=== PATIENT | male | born 1990 | race Hispanic/Latino ===

== ENCOUNTER 2022-12-08 21:45 | Inpatient (IN) | payer SELFPAY ==
[2022-12-08] VITALS (29 sets, daily range): BP systolic 79–172; BP diastolic 43–131; PULSE 101–143; RESP 12–37; TEMP 36.6; O2SAT 80–95
--- NOTE | ~2022-12-08 | XR_ITS ---
EXAMINATION: XR chest 2V DATE: 12/11/2022 09:30 INDICATION: Pneumonia. TECHNIQUE: Frontal and lateral views of the chest were obtained. COMPARISON: Chest single view 12/08/2022 FINDINGS: There are mild airspace opacities in the perihilar regions bilaterally. No pleural effusion or pneumothorax. The heart size is normal. IMPRESSION: 1. Mild airspace opacities in the perihilar regions bilaterally with interval improvement, likely mil d pulmonary edema. Reviewed, dictated and finalized at location B. IMPRESSION: 1. Mild airspace opacities in the perihilar regions bilaterally with interval i mprovement, likely mild pulmonary edema.
--- NOTE | ~2022-12-08 | XR_ITS ---
EXAMINATION: XR chest 1V portable Exam Date/Time: 12/08/2022 22:04 CDT HISTORY: overdose Comparison: None. RESULT: Lines, tubes, and devices: None. Lungs and pleura: Diffuse bilateral reticular and airspace opacities, most prominent in the majority of the left lung and the right upper lung but also present to a lesser degree in the right mid and l ower lung. Cardiomediastinal silhouette: Normal. Other: No acute osseous or upper abdominal finding. IMPRESSION: Pulmonary findings likely represent moderate diffuse bilateral pulmonary edema. Infection or inhalati onal injury are not excluded. Reviewed, dictated and finalized at location K. IMPRESSION: Pulmonary findings likely represent moderate diffuse bilateral pulmonary edema. Infection or inhalational injury are not excluded.
--- NOTE | ~2022-12-08 | US_ITS ---
EXAMINATION: US abdomen limited DATE: 12/09/2022 10:29 INDICATION: Abnormal liver function tests. TECHNIQUE: Multiple grayscale and Doppler ultrasound images of the abdomen were obtained. COMPARISON: None FINDINGS: The pancreas is obscured by bowel gas. The liver is normal without focal lesion. No liver s urface nodularity. There is normal flow in main portal vein. The gallbladder is normal in size. No ga llstones or gallbladder wall thickening. There was no sonographic Do sign. The common duct is nor mal and measures 3 mm. IMPRESSION: 1. No etiology for abnormal liver function tests. Reviewed, dictated and finalized at location B.
--- NOTE | 2022-12-08 21:50 | PC.NURSE ---
pt arrived by private car by pts sister. pt OD on fentanyl . pt was placed in room. pt was lethargic almost obtunded. pt has snoring/tach respirations. NRB was immediately applied. IV established. pt placed on monitor. pt was alert with a hard sternal rub. Medications given. labs and ekg were complete. pt vomited x3. pt bit his upper lip and scant amount of bleeding was noted
--- NOTE | 2022-12-08 21:52 | ECG_ITS ---
Measurements Intervals [place] Rate: 149 P: 50 SC: 109 QRS: 62 QRSD: 85 T: 51 QT: 279 QTc: 440 Interpretive Statements SINUS TACHYCARDIA ABNORMAL RHYTHM ECG NO PREVIOUS ECG AVAILABLE FOR COMPARISON Electronically Signed On 12-09-2022 7:46:53 CDT by Lamine Anton M.D.
--- NOTE | 2022-12-08 22:20 | PC.NURSE ---
pt is having periods of apnea
--- NOTE | 2022-12-08 22:21 | PC.NURSE ---
2nd narcan given
[2022-12-08] MEDS: NALOXONE HCL 0.4 MG/ML VIAL (22:32)
[2022-12-08] MEDS: ONDANSETRON INJ 4 MG/2 ML VIAL IV PUSH (22:33)
[2022-12-08] MEDS: NALOXONE HCL INJ 2 MG/2 ML AMP IV PUSH (22:33)
[2022-12-08 22:35] LABS: Basophils Percent Auto 0.6 % (0.2-1.2); Eosinophils Percent Auto 0.4 % (0-4.4); Hematocrit 53.4 % (42.0-52.0); Hemoglobin 17.6 g/dL (14.0-18.0); Immature Granulocyte Absolute 0.01 K/mm3 (0.00-0.031); Immature Granulocyte Percent A 0.2 % (0-0.5); Lymphocytes Absolute Auto 1.86 K/mm3 (0.9-3.2); Lymphocytes Percent Auto 39.9 % (18.3-44.2); Mean Corpuscular Hemoglobin 30.7 pg (26-34); Mean Corpuscular Volume 93.2 fl (80-100); Mean Platelet Volume 11.9 fl (7.4-10.4); Monocytes Absolute Auto 0.3 K/mm3 (0.1-0.6); Monocytes Percent Auto 6.9 % (2.6-8.5); Neutrophils Absolute Auto 2.4 K/mm3 (1.3-6.7); Platelet Count Result 250 k/mm3 (150-375); Red Blood Count 5.73 M/mm3 (4.6-6.20); Red Cell Distribution Width 12.8 % (11.5-14.5); White Blood Count 4.7 K/mm3 (4.5-10.0)
[2022-12-08 22:46] LABS: Prothrombin Time 13.1 Seconds (11.1-14.7)
[2022-12-08 22:47] LABS: Partial Thromboplastin Time 28.7 SECONDS (22.3-36.8)
[2022-12-08 22:48] LABS: Ethanol < 10 mg/dL (<10)
[2022-12-08 22:48] LABS: Lactic Acid Reflex 2.9 mmol/L (0.7-2.0)
[2022-12-08 22:50] LABS: Alanine Aminotransferase 178 U/L (6-50); Albumin Level 4.2 g/dL (3.5-5.1); Alkaline Phosphatase 61 U/L (38-126); Anion Gap 10 mmol/L (8-16); Aspartate Amino Transferase 583 U/L (17-59); Bilirubin,Total 0.6 mg/dL (0.2-1.3); Blood Urea Nitrogen 16 mg/dL (9-20); Calcium 8.3 mg/dL (8.4-10.2); Carbon Dioxide 26 mmol/L (22-30); Chloride 100 mmol/L (98-107); Estimated CRCL calculation 75 ml/min; Estimated Glomerular Filt Rate > 60; Glucose 186 mg/dL (65-110); Potassium 3.7 mmol/L (3.4-5.0); Sodium 136 mmol/L (137-145)
[2022-12-08 22:53] LABS: Appearance Urine Cloudy (Clear); Bacteria Urine None Seen /hpf; Bilirubin Urine Negative (Negative); Blood Urine 2+ (Negative); Color Urine Yellow (Yellow); Glucose Urine UA Negative (Negative); Granular Casts Urine Present /lpf; Hyaline Casts Urine Present /lpf; Ketones Urine Negative (Negative); Leukocyte Esterase Ur Negative LEU/UL (Negative); Nitrate Urine Negative (Negative); Non Pathogenic Casts >20; Protein Urine 2+ mg/dL (Negative); Specific Grav Ur 1.018 (1.001-1.035); Squamous Epithelial Cell Urine Few /hpf (Few); pH Urine 5.5 (5.0-9.0)
[2022-12-08 22:54] LABS: Add Urine Microscopic? YES
[2022-12-08 22:55] LABS: Amphetamine Screen Urine Positive (Negative); Barbiturate Screen Urine Negative (Negative); Benzodiazepines Screen Urine Negative (Negative); Cannabinoid Screen Urine Positive (Negative); Cocaine Screen Urine Positive (Negative); Methadone Screen Urine Negative (Negative); Opiate Screen Urine Negative (Negative); Phencyclidine Screen Urine Negative (Negative)
--- NOTE | 2022-12-08 22:55 | PC.NURSE ---
pt sts that he snorted a large line of fentanyl,
--- NOTE | 2022-12-08 22:57 | PC.NURSE ---
pt is currently axox4, pt is still on a NRB at 15 L. pt stopped vomiting and still is in NST
--- NOTE | 2022-12-08 22:59 | PC.NURSE ---
sister was told not to video chat in room
[2022-12-08] MEDS: SODIUM CHLORIDE 0.9% IV 1,000 ML 999 ML (23:09)
--- NOTE | 2022-12-08 23:34 | ED.GENADULT ---
HPI - General Adult General Chief complaint: Overdose Stated complaint: fentanyl overdose? Time Seen by Provider: 12/08/22 21:49 History of Present Illness HPI narrative: Patient 32-year-old gentleman who presents the emergency department with chief complaint of overdose. Patient has prior history of polysubstance abuse and tonight did some fentanyl and was having problems with being decreased responsiveness. The patient has had a prior overdose in the last week and has had several family numbers that have from opiate overdoses fairly recently. Related Data Home Medications Medication Instructions Recorded Confirmed No Home Medications 12/08/22 12/08/22 Allergies Allergy/AdvReac Type Severity Reaction Status Date / Time No Known Allergies Allergy Verified 12/08/22 22:16 Review of Systems Review of Systems: A 10 system review of systems was completed on the patient and is negative except for what is stated in the HPI. Nursing and ancillary documentation was reviewed. [facility] Social History Social History Substance use type: painkillers and other Exam Narrative: GENERAL: Ill-appearing, well-nourished, and extremely drowsy. At times snoring respirations when not stimulated. HEAD: Normocephalic, atraumatic. EYES: Pinpoint pupils. ENT: Nares clear, no rhinorrhea or epistaxis. Mucous membranes moist. NECK: Supple. CHEST: Clear to auscultation. No respiratory distress. HEART: Regular rate and rhythm. No murmur heard. Normal peripheral pulses. ABDOMEN: Soft, nontender, nondistended, normal active bowel sounds. EXTREMITIES: Normal range of motion. No edema. SKIN: Warm, dry, no rash. NEURO: No focal deficits. Alert and oriented x3 when awake. PSYCH: Normal mood and affect. Course Vital Signs Vital signs: Vital Signs Pulse Oximetry 88 L 12/08/22 21:58 Temperature 36.6 C 12/08/22 21:59 Pulse Rate 93 12/09/22 01:31 Respiratory Rate 25 H 12/09/22 01:31 Blood Pressure 91/59 L 12/09/22 01:31 Pulse Oximetry 93 12/09/22 01:31 Oxygen Delivery Non-Rebreather Mask 12/08/22 22:01 Oxygen Flow Rate 15 12/08/22 22:01 Medical Decision Making [facility] Narrative Medical decision making narrative: Differential diagnosis includes polysubstance overdose, pulmonary edema, aspiration The patient was having agonal respirations and pinpoint pupils Patient was treated with Narcan in the emergency department and has been hydrated with fluids patient is requiring supplemental oxygen Vital Signs Vital Signs: Vital Signs Pulse Oximetry 88 L 12/08/22 21:58 Temperature 36.6 C 12/08/22 21:59 Pulse Rate 93 12/09/22 01:31 Respiratory Rate 25 H 12/09/22 01:31 Blood Pressure 91/59 L 12/09/22 01:31 Pulse Oximetry 93 12/09/22 01:31 Oxygen Delivery Non-Rebreather Mask 12/08/22 22:01 Oxygen Flow Rate 15 12/08/22 22:01 Lab Data 12/08/22 22:24 12/08/22 22:24 Labs: Lab Results 12/08/22 12/08/22 12/08/22 Range/Units 22:24 22:27 22:30 WBC 4.7 (4.5-10.0) K/mm3 RBC 5.73 (4.6-6.20) M/mm3 Hgb 17.6 (14.0-18.0) g/dL Hct 53.4 H (42.0-52.0) % MCV 93.2 (80-100) fl MCH 30.7 (26-34) pg MCHC 33.0 (32-36) g/dl RDW 12.8 (11.5-14.5) % Plt Count 250 (150-375) k/mm3 MPV 11.9 H (7.4-10.4) fl Immature Gran % (Auto) 0.2 (0-0.5) % Neut % (Auto) 52.0 (45.5-73.1) % Lymph % (Auto) 39.9 (18.3-44.2) % Mathews % (Auto) 6.9 (2.6-8.5) % Eos % (Auto) 0.4 (0-4.4) % Baso % (Auto) 0.6 (0.2-1.2) % Lymph # (Auto) 1.86 (0.9-3.2) K/mm3 Mathews # (Auto) 0.3 (0.1-0.6) K/mm3 Eos # (Auto) 0.0 (0-0.3) K/mm3 Baso # (Auto) 0.0 (0.0-0.1) K/mm3 Abs Immat Gran (auto) 0.01 (0.00-0.031) K/mm3 Absolute Neuts (auto) 2.4 (1.3-6.7) K/mm3 Absolute Nucleated RBC 0.0 (0.0-0.012) K/mm3 Nucleated RBC %
--- NOTE | 2022-12-08 23:40 | PC.NURSE ---
sister sts, her mother/cousin OD and last week. PT OD last week
[2022-12-09] VITALS (39 sets, daily range): BP systolic 71–125; BP diastolic 49–99; PULSE 82–105; RESP 13–32; TEMP 36.7–36.8; O2SAT 86–100; BMI 35.1
--- NOTE | 2022-12-09 | ECHO_ITS ---
Patient Info Name: Juarez Small Age: 32 years : 1990 Gender: Male Ht: 64 in Wt: 185 lbs BSA: 1.98 m2 HR: 76 bpm BP: 102 / 59 mmHg Heart Rhythm: Sinus Rhythm Technical Quality: Good Exam Date: 12/09/2022 9:15 AM Exam Location: [facility] Patient Status: Inpatient Admit Date: 12/09/2022 Staff Ordering Physician: Floresita Woods DO Cement Sprayer Helper: Yanira Goyal RDCS Attending Provider: Floresita Woods DO Referring Physician: Chuck MORRISON; Exam Type: CA echo dop color flow w con Study Info Indications - pul edema Complete two-dimensional, color flow and Doppler transthoracic echocardiogram is performed with contrast to opacify the left ventricle and to improve the deliniation of the left ventricle endocardial borders. Summary 1. Normal left ventricular size and thickness. Left ventricular systolic function appears to be at the low end of normal, perhaps 55% ejection fraction. Normal diastolic function. No segmental wall motion abnormalities. Left ventricle is not well visualized. 2. No significant valve disease. 3. Normal sinus rhythm. 4. Technically difficult study; definity echo contrast used. Left Ventricle Left ventricular chamber dimension is normal. Left ventricular systolic function is normal, estimated at 50-55%. There is no increased left ventricular wall thickness. Left ventricular septal wall motion is normal. The left ventricular diastolic function is normal. Right Ventricle Right ventricular chamber dimension is normal. Right ventricular systolic function is normal. Left Atria Left atrial chamber dimension is normal. Right Atria Right atrial chamber dimension is normal. Aortic Valve The aortic valve is trileaflet. There is no aortic valve sclerosis. There is no aortic valve stenosis. There is no aortic valve regurgitation. Pulmonic Valve The pulmonic valve is normal. There is no pulmonic valve stenosis. There is no pulmonic regurgitation. Mitral Valve The mitral valve has normal leaflets. There is no mitral valve stenosis. There is no mitral valve regurgitation. Tricuspid Valve The tricuspid valve leaflets are normal. There is no significant tricuspid valve stenosis. There is no tricuspid valve regurgitation. No pulmonary hypertension, estimated pulmonary arterial systolic pressure is Empty. Pericardium/Pleural The pericardium appears normal. There is no pericardial effusion. Inferior Vena Cava Normal inferior vena cava with >50% collapse upon inspiration consistent with Empty right atrial pressure, Empty. Aorta The aortic root size at the sinus of Valsalva is normal. The prox ascending aorta size is normal. Ventricles Name Value Normal LV Fractional Shortening/Ejection Fraction 2D/MM LV EF (BP MOD) 65 % 52-72 Report Signatures
--- NOTE | 2022-12-09 | PC.NURSE ---
pt is still on a NRB but 02 is now 10 L. will titrate when appropriate
--- NOTE | 2022-12-09 00:32 | PC.NURSE ---
pt could not support 02 sat w/o supplemental 02. Pt is now on 02 @[address] [place] [address]
--- NOTE | 2022-12-09 00:47 | PC.NURSE ---
pt does desat while sleeping. pt is a mouth breather. PT has a hx of multi times breaking his nose
[2022-12-09] MEDS: SODIUM CHLORIDE 0.9% IV 1,000 ML 999 ML IV CONT (00:53)
--- NOTE | 2022-12-09 00:57 | PC.NURSE ---
pt will be an admit. pt given another liter of fluid. And pt will be placed on bipap 04/14
--- NOTE | 2022-12-09 01:04 | PM.IMHP ---
H&P: HPI History of Present Illness Date/Time: 12/09/22 01:04 Chief Complaint: Overdose Narrative: 32-year-old male with a past medical history of obesity and chronic polysubstance abuse who presented to the ER after an unintentional overdose of fentanyl. The patient arrived by private car when his sister found him unresponsive after snorting a big line of fentanyl. She managed to load the patient in the car bring him to the ER. When he arrived to the ER sister told staff that the patient's cousin and brother had from opiate overdoses recently. The patient reports that he was just trying to get high when he snorted of a gland of fentanyl and went unresponsive. He received 3 doses of Narcan in the ER 2 mg x 2 and 0.4 mg x 1. He has required Narcan hourly since he arrived to the ER. Despite receiving Narcan in being alert and awake and oriented patient had persistent hypoxia requiring 6 L nasal cannula. When oxygen was decreased down to 4 L patient was desatting into the low to mid 80s. Chest x-ray was performed which demonstrated diffuse bilateral pulmonary edema, infection or inhalation injury not excluded. The patient does admit that he has smoked crack cocaine recreationally since he was a teenager. He also smokes tobacco and marijuana. His urine drug screen was positive for amphetamines, cocaine and cannabinoids. The patient reports that he does not use fentanyl on a routine basis. He denies any recent cough or cold symptoms. He denies having any fevers or chills. He does state that he is fatigued often and it is not uncommon for him to fall asleep while he is driving home even when he has not use substances. He has never been tested for sleep apnea. He reports that he has a good appetite and has requested food multiple times during the course of my evaluation. The patient did fall asleep a couple of times during my evaluation but was relatively easy to arouse with verbal stimuli. Patient does report snoring quite loudly. He frequently falls asleep while driving. He has never had a sleep study. Review of Systems Review of Systems: 12 systems were reviewed with pertinent positives and negatives per HPI. Except as documented in the HPI, all other systems were reviewed and are negative. [facility] Past Medical History Medical History (Updated 12/09/22 @ 07:54 by Floresita Woods DO) Obesity (BMI 30-39.9) Polysubstance dependence including opioid type drug with complication, episodic abuse Surgical History Surgical History (Updated 12/09/22 @ 07:54 by Floresita Woods DO) No history of previous surgery Family History Family History Other Overdose Social History Social History (Updated 12/09/22 @ 08:55 by Floresita Woods DO) Social History: He reports that he has been using illicit drugs since his mid teens. He usually uses meth, marijuana and smokes crack cocaine. He denies IV drug use but does smoke and snort his drug of choice. He also uses ecstasy. He denies any significant alcohol use. Code status: Full code Surrogate decision maker: Michael (sister) Smoking packs per day: 0.5 Smoking cigarettes per day: 10.0 Years smoked: 20 Smoking pack-years: 10.00 Smoking status: Current every day smoker Alcohol intake: current Drinks per week: 3 Substance use: current Substance use type: marijuana, crack/cocaine and opiates Lack of Transportation: No Lack of Food: Sometimes True Current Housing: I Have Housing Concerned About Future Housing: No Difficulty Paying Gas/Electric Bills: YES Difficulty Paying for Meds: YES Currently Unemployed: No Education: High School Diploma/GED Difficulty w/ Childcare or Family Care: No Spiritual care concerns: No Meds Home Medications and Allergies Home Medications Medication Instructions Recorded Confirmed Type No Home Medications 12/08/22 12/08/22 Hist
--- NOTE | 2022-12-09 01:20 | PC.NURSE ---
3 and 4th dose of narcan not needed
--- NOTE | 2022-12-09 01:20 | PC.NURSE ---
RT is at bedside
[2022-12-09 01:29] LABS: Alveolar/Arterial O2 Gradient 154.3 mmHg; Base Excess ABG -3.2 mEq/l (+/-2.0); Fractional Inspired Oxygen 36 %; HCO3 ABG 22.2 mEq/l (22.0-26.0); Oxygen Content ABG 19.5 %vol (16.0-22.0); PCO2 ABG 40.9 mmHg (35.0-45.0); PO2 ABG 54.9 mmHg (80.0-100.0); PO2 FiO2 Ratio Arterial Blood 1.53 %; Total Hemoglobin 16.3 g/dL (12.0-18.0); pH ABG 7.352 (7.350-7.450)
[2022-12-09 01:32] LABS: Oxygen Saturation ABG 87.2 % (95.0-100.0)
[2022-12-09 01:32] LABS: Reflex Lactic Acid Yes or No Add Lactic
[2022-12-09 01:33] LABS: Oxyhemoglobin 85.1 % THb (90.0-100.0)
[2022-12-09 01:39] LABS: Device NASAL CANNULA; Modified Allen's Test Pass; Site Drawn LEFT RADIAL
--- NOTE | 2022-12-09 02:01 | PC.NURSE ---
pt is on bipap 02/12 40%FI02. PT gets GAYTAN
[2022-12-09] MEDS: AMPICILLIN SULB 3 GM/NS 100 ML 3 GM/100 ML VIAL IVPB ×4 (02:06→21:08)
[2022-12-09 02:10] LABS: Troponin I 0.217 ng/mL (0.000-0.034)
--- NOTE | 2022-12-09 02:34 | PC.NURSE ---
report called to Sergio
--- NOTE | 2022-12-09 02:51 | PC.NURSE ---
pt was transported with RT/RN and tech while on a school bus monitor
--- NOTE | 2022-12-09 02:55 | ADMGEN ---
This patient, Juarez Small, was admitted to Intensive Care Unit-2. Patient/family oriented to hospital policies and general routines including ID bracelet, bed and alarms, visiting hours, pain management, procedures, bathroom and other care routines, personal items, smoking policy, room service/diet, and visiting hours. Information on how to activate the Rapid Response Team has been discussed. Patient/Family are encouraged to report perceived risks to care and to ask questions if they do not understand what they are told or what they should do. Patient alert and orientated request ice chips pt on bipap rr20 sat 100%
[2022-12-09 03:42] LABS: Influenza A QL RT-PCR Negative (Negative); Influenza B QL RT-PCR Negative (Negative); SARS-CoV-2 RNA PCR Negative (Negative)
[2022-12-09 03:43] LABS: Lactic Acid 2.5 mmol/L (0.7-2.0)
[2022-12-09 03:59] LABS: Troponin I 0.499 ng/mL (0.000-0.034)
[2022-12-09] MEDS: ASPIRIN 81 MG CHEWABLE TABLET 324 MG PO (04:11)
[2022-12-09 07:17] LABS: Troponin I 0.332 ng/mL (0.000-0.034)
[2022-12-09 07:56] LABS: Hematocrit 42.8 % (42.0-52.0); Hemoglobin 14.3 g/dL (14.0-18.0); Mean Corpuscular HGB Conc 33.4 g/dl (32-36); Mean Corpuscular Hemoglobin 30.9 pg (26-34); Mean Corpuscular Volume 92.4 fl (80-100); Mean Platelet Volume 11.9 fl (7.4-10.4); Platelet Count Result 158 k/mm3 (150-375); Red Blood Count 4.63 M/mm3 (4.6-6.20); Red Cell Distribution Width 12.8 % (11.5-14.5); White Blood Count 6.6 K/mm3 (4.5-10.0)
[2022-12-09 08:04] LABS: Anion Gap 5 mmol/L (8-16); Blood Urea Nitrogen 18 mg/dL (9-20); Carbon Dioxide 26 mmol/L (22-30); Chloride 104 mmol/L (98-107); Estimated CRCL calculation 91 ml/min; Estimated Glomerular Filt Rate > 60; Glucose 128 mg/dL (65-110); Potassium 4.2 mmol/L (3.4-5.0); Sodium 135 mmol/L (137-145)
[2022-12-09] MEDS: ASPIRIN 81 MG CHEWABLE TABLET PO (08:11)
[2022-12-09 08:13] LABS: NT Pro B Type Natriuretic Pept 478 pg/mL (19.9-100)
[2022-12-09 08:27] LABS: Band Neutrophils Percent 10 % (0-6); Lymphocytes Absolute Manual 1.45 K/mm3 (1.1-4.5); Monocytes Absolute Manual 0.46 K/mm3 (0.1-0.90); Monocytes Percent Manual 7 % (3-9); Neutrophils Absolute Manual 4.68 K/mm3 (1.3-6.7); Neutrophils Percent Manual 61 % (46-73); Platelet Estimate Adequate (Adequate); Schistocytes None Seen (NORMAL); Total Cells Counted 100
[2022-12-09 08:27] LABS: Lactic Acid Reflex 2.3 mmol/L (0.7-2.0)
[2022-12-09] MEDS: PERFLUTREN LIPID MICROSPHERES 1.5 ML VIAL DILUTED TO 10 ML TOTAL VOLUME IV PUSH (09:00)
[2022-12-09 09:16] LABS: Procalcitonin 11.3 ng/mL
[2022-12-09 09:31] LABS: Hepatitis B Surface Antigen Negative (Negative)
[2022-12-09 09:37] LABS: HAV RESULT Negative (Negative); Hepatitis B Core IgM Result Negative (Negative)
[2022-12-09 09:48] LABS: Hepatitis C Virus Antibody Negative (Negative)
--- NOTE | 2022-12-09 09:48 | WPDCNINT ---
Assessment and Plan Assessment and plan (1) Acute respiratory failure with hypoxia: Code(s): J96.01 - Acute respiratory failure with hypoxia Status: Acute Assessment and Plan: Patient was hypoxic on presentation and requiring 6 L of nasal cannula. Chest x-ray done in the ER showed Pulmonary findings likely represent moderate diffuse bilateral pulmonary edema. Infection or inhalational injury are not excluded. Normal WBC, BNP 478 procalcitonin level 11.3 Aspiration pneumonia versus pulmonary edema versus combination Blood cultures ordered Patient on empiric Unasyn Echocardiogram ordered (2) Elevated troponin: Code(s): R77.8 - Other specified abnormalities of plasma proteins Status: Acute Assessment and Plan: Likely secondary to cocaine EKG reviewed Echocardiogram pending (3) Polysubstance dependence including opioid type drug with complication, episodic abuse: Code(s): F19.20 - Other psychoactive substance dependence, uncomplicated Status: Acute Assessment and Plan: Patient admits to be use of ecstasy methamphetamine marijuana cocaine and fentanyl Patient was counseled and encouraged to quit drug use (4) Toxic encephalopathy: Code(s): G92.9 - Unspecified toxic encephalopathy Status: Acute Assessment and Plan: Patient presented with altered mental status secondary to drug abuse and overdose Patient received 3 doses of Narcan in the ER Affect appears to have worn off as patient is now alert oriented x3 Monitor (5) Elevated liver enzymes: Code(s): R74.8 - Abnormal levels of other serum enzymes Status: Acute Assessment and Plan: Likely secondary to alcohol abuse Check right upper quadrant ultrasound and hepatitis panel Plan DVT prophylaxis -SCDs Lovenox Nutrition -heart healthy diet Code Status - Full Code Transfer out of ICU today Flight Technician Consult Note Consult date: 12/09/22 Reason for consult: Drug overdose, altered mental status, hypoxia HPI: Juarez Small is a 32 year old male with no significant past medical history but history of polysubstance abuse including fentanyl ecstasy methamphetamine marijuana and crack cocaine was brought in by EMS due to unintentional overdose of fentanyl. In ER patient was found to be hypoxic and requiring 6 L of oxygen. He was given 3 doses of Narcan with partial improvement of mental status. His chest x-ray showed findings suggestive of pulmonary edema. Due to his altered mental status and hypoxia with possibility of him needing intubation he was admitted to ICU for further evaluation management. He was started on empiric antibiotics for possible aspiration pneumonia. This morning when I saw the patient he is now awake and alert. He admitted to snorting fentanyl crack cocaine and ecstasy yesterday for no particular reason. He denies any suicidal homicidal ideation or attempts in the past. He admits to regular abuse of illicit drugs. He admits to smoking half to 1 pack per day for last 20 years. Drinks 1 beer on average today and denies any binge drinking. He denies any IV drug use. He works as a early childhood special educator and denies any medical problems that he is aware of. Review of system was positive for occasional chest pain with deep breathing and coughing. He admitted to episode of orthopnea but that was 5-6 years ago. Denies any chest pain or shortness of breath on exertion. No lower extremity edema. Patient denies fever, chest pain, shortness of breath, cough, nausea vomiting, abdominal pain,, diarrhea, headache or constipation. No dysuria hematuria. All other systems were reviewed and were negative Review of Systems Review of Systems: All systems reviewed & are unremarkable except as noted in HPI and below (HPI) [facility]LY [facility], [facility] Past Medical History Medical History Obesity (BMI 30-39.9) Polysubstance dependence including opioid type drug with complicati
[2022-12-09] MEDS: ENOXAPARIN 40 MG/0.4 ML SYRINGE SUB-Q (11:13)
--- NOTE | 2022-12-09 17:58 | WPDPN ---
Progress Note: A&P Assessment and Plan (1) Acute respiratory failure with hypoxia: Code(s): J96.01 - Acute respiratory failure with hypoxia Status: Acute Assessment and Plan: 12/09/2022 interval history: Patient presented with polysubstance abuse, upon arrival patient hypoxic concerning for aspiration pneumonia and treated with broad-spectrum antibiotics, initially patient was admitted in ICU, his clinical symptoms are improving will transfer patient out of ICU to IMU and monitor. (2) Elevated troponin: Code(s): R77.8 - Other specified abnormalities of plasma proteins Status: Acute Assessment and Plan: Likely secondary to cocaine EKG reviewed Echocardiogram pending (3) Polysubstance dependence including opioid type drug with complication, episodic abuse: Code(s): F19.20 - Other psychoactive substance dependence, uncomplicated Status: Acute Assessment and Plan: Patient admits to be use of ecstasy methamphetamine marijuana cocaine and fentanyl Patient was counseled and encouraged to quit drug use (4) Toxic encephalopathy: Code(s): G92.9 - Unspecified toxic encephalopathy Status: Acute Assessment and Plan: Patient presented with altered mental status secondary to drug abuse and overdose Patient received 3 doses of Narcan in the ER Affect appears to have worn off as patient is now alert oriented x3 Monitor (5) Elevated liver enzymes: Code(s): R74.8 - Abnormal levels of other serum enzymes Status: Acute Assessment and Plan: Likely secondary to alcohol abuse Check right upper quadrant ultrasound and hepatitis panel Plan DVT prophylaxis -SCDs Lovenox Nutrition -heart healthy diet Code Status - Full Code Transfer out of ICU today Subjective Date/time seen: 12/09/22 17:58 Interval history: Overdose HPI-Narrative: 32-year-old male with a past medical history of obesity and chronic polysubstance abuse who presented to the ER after an unintentional overdose of fentanyl.? The patient arrived by private car when his sister found him unresponsive after snorting a big line of fentanyl.? She managed to load the patient in the car bring him to the ER.? When he arrived to the ER sister told staff that the patient's cousin and brother had from opiate overdoses recently.? The patient reports that he was just trying to get high when he snorted of a gland of fentanyl and went unresponsive.? He received 3 doses of Narcan in the ER 2 mg x 2 and 0.4 mg x 1.? He has required Narcan hourly since he arrived to the ER.? Despite receiving Narcan in being alert and awake and oriented patient had persistent hypoxia requiring 6 L nasal cannula.? When oxygen was decreased down to 4 L patient was desatting into the low to mid 80s.? Chest x-ray was performed which demonstrated diffuse bilateral pulmonary edema, infection or inhalation injury not excluded.? The patient does admit that he has smoked crack cocaine recreationally since he was a teenager.? He also smokes tobacco and marijuana.? His urine drug screen was positive for amphetamines, cocaine and cannabinoids.? The patient reports that he does not use fentanyl on a routine basis.? He denies any recent cough or cold symptoms.? He denies having any fevers or chills.? He does state that he is fatigued often and it is not uncommon for him to fall asleep while he is driving home even when he has not use substances.? He has never been tested for sleep apnea.? He reports that he has a good appetite and has requested food multiple times during the course of my evaluation.? The patient did fall asleep a couple of times during my evaluation but was relatively easy to arouse with verbal stimuli. Patient does report snoring quite loudly.? He frequently falls asleep while driving.? He has never had a sleep study. 12/09/2022 interval history: Patient presented with polysubstance abuse, upon arrival patient hypoxic concerning for
[2022-12-10] VITALS: BP 95/48; PULSE 87; PULSE 91; RESP 20; RESP 25; O2SAT 93; O2SAT 95
[2022-12-10] MEDS: AMPICILLIN SULB 3 GM/NS 100 ML 3 GM/100 ML VIAL IVPB ×4 (03:00→20:37)
[2022-12-10 03:27] LABS: Hematocrit 43.2 % (42.0-52.0); Hemoglobin 14.4 g/dL (14.0-18.0); Mean Corpuscular HGB Conc 33.3 g/dl (32-36); Mean Corpuscular Hemoglobin 30.3 pg (26-34); Mean Corpuscular Volume 90.9 fl (80-100); Mean Platelet Volume 11.7 fl (7.4-10.4); Platelet Count Result 142 k/mm3 (150-375); Red Blood Count 4.75 M/mm3 (4.6-6.20); Red Cell Distribution Width 12.9 % (11.5-14.5); White Blood Count 11.1 K/mm3 (4.5-10.0)
[2022-12-10 03:41] LABS: Alanine Aminotransferase 106 U/L (6-50); Albumin Level 3.1 g/dL (3.5-5.1); Alkaline Phosphatase 53 U/L (38-126); Anion Gap -1 mmol/L (8-16); Aspartate Amino Transferase 226 U/L (17-59); Bilirubin,Total 0.6 mg/dL (0.2-1.3); Blood Urea Nitrogen 12 mg/dL (9-20); Calcium 7.9 mg/dL (8.4-10.2); Carbon Dioxide 30 mmol/L (22-30); Chloride 100 mmol/L (98-107); Estimated CRCL calculation 101 ml/min; Estimated Glomerular Filt Rate > 60; Glucose 104 mg/dL (65-110); Magnesium 1.9 mg/dL (1.6-2.3); Potassium 3.5 mmol/L (3.4-5.0); Sodium 129 mmol/L (137-145)
[2022-12-10 04:00] VITALS: BP 102/52; PULSE 88; RESP 26; TEMP 37.3; O2SAT 95
[2022-12-10 04:26] VITALS: PULSE 88; RESP 22; O2SAT 95
[2022-12-10 08:00] VITALS: BP 117/69; PULSE 78; PULSE 79; RESP 20; TEMP 36.4; O2SAT 97
[2022-12-10] MEDS: ASPIRIN 81 MG CHEWABLE TABLET PO (08:51)
[2022-12-10] MEDS: ENOXAPARIN 40 MG/0.4 ML SYRINGE SUB-Q (09:19)
[2022-12-10 14:37] VITALS: BP 121/68; PULSE 80; RESP 12; TEMP 37.1; O2SAT 96
--- NOTE | 2022-12-10 15:04 | PC.NURSE ---
This patient, Juarez Small, was received from ICU on 12/10/22 at 1445. Patient/family oriented to unit policies and routines
[2022-12-10] MEDS: IBUPROFEN 400 MG TABLET PO (16:02)
[2022-12-10] MEDS: CYCLOBENZAPRINE HCL 10 MG TABLET PO (16:02)
[2022-12-10 22:03] VITALS: BP 118/46; PULSE 102; RESP 18; TEMP 37.6; O2SAT 96
[2022-12-11] MEDS: AMPICILLIN SULB 3 GM/NS 100 ML 3 GM/100 ML VIAL IVPB (01:47)
[2022-12-11 06:00] VITALS: BP 155/68; PULSE 65; RESP 18; TEMP 37.1; O2SAT 97
--- NOTE | 2022-12-11 07:48 | WPDPN ---
Progress Note: A&P Assessment and Plan (1) Acute respiratory failure with hypoxia: Code(s): J96.01 - Acute respiratory failure with hypoxia Status: Acute Assessment and Plan: 12/10/2022 interval history: Patient presented with polysubstance abuse, upon arrival patient hypoxic concerning for aspiration pneumonia and treated with broad-spectrum antibiotics, initially patient was admitted in ICU, his clinical symptoms are improving and patient was transferred out of ICU to IMU and monitor., will monitor and repeat chest x=ray tomorrow, and will monitor. (2) Elevated troponin: Code(s): R77.8 - Other specified abnormalities of plasma proteins Status: Acute Assessment and Plan: Likely secondary to cocaine EKG reviewed Echocardiogram pending (3) Polysubstance dependence including opioid type drug with complication, episodic abuse: Code(s): F19.20 - Other psychoactive substance dependence, uncomplicated Status: Acute Assessment and Plan: Patient admits to be use of ecstasy methamphetamine marijuana cocaine and fentanyl Patient was counseled and encouraged to quit drug use (4) Toxic encephalopathy: Code(s): G92.9 - Unspecified toxic encephalopathy Status: Acute Assessment and Plan: Patient presented with altered mental status secondary to drug abuse and overdose Patient received 3 doses of Narcan in the ER Affect appears to have worn off as patient is now alert oriented x3 Monitor (5) Elevated liver enzymes: Code(s): R74.8 - Abnormal levels of other serum enzymes Status: Acute Assessment and Plan: Likely secondary to alcohol abuse Check right upper quadrant ultrasound and hepatitis panel Plan DVT prophylaxis -SCDs Lovenox Nutrition -heart healthy diet Code Status - Full Code Transfer out of ICU today Subjective Date/time seen: 12/10/22 07:48 Interval history: 12/10/2022 interval history: Patient presented with polysubstance abuse, upon arrival patient hypoxic concerning for aspiration pneumonia and treated with broad-spectrum antibiotics, initially patient was admitted in ICU, his clinical symptoms are improving and patient was transferred out of ICU to IMU and monitor., will monitor and repeat chest x=ray tomorrow, and will monitor. Review of Systems Review of Systems: 12 systems were reviewed with pertinent positives and negatives per HPI. Except as documented in the HPI, all other systems were reviewed and are negative. Exam Narrative: Patient is comfortable, NAD HEENT: eyes are clear and none icteric LUNGS: Normal respiratory effort ABD: Distended Lower extremities: no edema SKIN: nonjaundiced Neuro: grossly intact. Objective Data Vital Signs Vital Signs: Vital Signs - 24 hr 12/10/22 08:00 12/10/22 08:00 12/10/22 08:00 Temperature 97.6 F Pulse Rate 79 78 Respiratory Rate 20 Blood Pressure 117/69 Pulse Oximetry 97 97 Oxygen Delivery Nasal Cannula Oxygen Flow Rate 2 12/10/22 14:37 12/10/22 22:03 12/11/22 06:00 Temperature 98.8 F 99.7 F H 98.7 F Pulse Rate 80 102 H 65 Respiratory Rate 12 18 18 Blood Pressure 121/68 118/46 L 155/68 H Pulse Oximetry 96 96 97 Oxygen Delivery Oxygen Flow Rate Intake/Output Intake/Output: Intake & Output 12/08/22 12/09/22 12/10/22 12/11/22 23:59 23:59 23:59 23:59 Intake Total 2092 1824 200 Output Total 9267 2500 Balance -233 -060 200 Meds/Results Medications: Active Medications Generic Name Dose Route Start Last Admin Trade Name Freq PRN Reason Stop Dose Admin Aspirin 81 mg 12/09/22 08:00 12/10/22 08:51 Aspirin 81 Mg Chewable Tablet PO 81 mg DAILY@0800 JOSIAS Administration Cyclobenzaprine HCl 10 mg 12/10/22 15:42 12/10/22 16:02 Cyclobenzaprine Hcl 10 Mg Tablet PO 10 mg Q8H PRN Administration Muscle Spasm Enoxaparin Sodium 40 mg 12/09/22 09:00 12/10/22 09:19 Enoxaparin
[2022-12-11 09:18] LABS: Hematocrit 39.5 % (42.0-52.0); Hemoglobin 13.3 g/dL (14.0-18.0); Mean Corpuscular HGB Conc 33.7 g/dl (32-36); Mean Corpuscular Hemoglobin 30.6 pg (26-34); Platelet Count Result 150 k/mm3 (150-375); Red Blood Count 4.34 M/mm3 (4.6-6.20); White Blood Count 9.5 K/mm3 (4.5-10.0)
[2022-12-11] MEDS: IBUPROFEN 400 MG TABLET PO (09:19)
[2022-12-11] MEDS: ASPIRIN 81 MG CHEWABLE TABLET PO (09:25)
[2022-12-11] MEDS: ENOXAPARIN 40 MG/0.4 ML SYRINGE SUB-Q (09:25)
[2022-12-11 09:35] LABS: Alanine Aminotransferase 77 U/L (6-50); Albumin Level 3.5 g/dL (3.5-5.1); Alkaline Phosphatase 58 U/L (38-126); Anion Gap 6 mmol/L (8-16); Aspartate Amino Transferase 83 U/L (17-59); Bilirubin,Total 0.8 mg/dL (0.2-1.3); Blood Urea Nitrogen 9 mg/dL (9-20); Calcium 8.6 mg/dL (8.4-10.2); Carbon Dioxide 26 mmol/L (22-30); Chloride 104 mmol/L (98-107); Estimated CRCL calculation 112 ml/min; Estimated Glomerular Filt Rate > 60; Glucose 108 mg/dL (65-110); Magnesium 1.9 mg/dL (1.6-2.3); Potassium 3.6 mmol/L (3.4-5.0); Sodium 136 mmol/L (137-145)
--- NOTE | 2022-12-11 12:03 | PM.DS ---
DS: Admitting Diagnosis Discharge Date 12/11/2022 Admitting Diagnosis overdose DS: Discharge Diagnosis Discharge Diagnosis (1) Acute respiratory failure with hypoxia: Code(s): J96.01 - Acute respiratory failure with hypoxia Status: Acute Assessment and Plan: 12/10/2022 interval history: Patient presented with polysubstance abuse, upon arrival patient hypoxic concerning for aspiration pneumonia and treated with broad-spectrum antibiotics, initially patient was admitted in ICU, his clinical symptoms are improving and patient was transferred out of ICU to IMU and monitor., will monitor and repeat chest x=ray tomorrow, and will monitor. (2) Elevated troponin: Code(s): R77.8 - Other specified abnormalities of plasma proteins Status: Acute Assessment and Plan: Likely secondary to cocaine EKG reviewed Echocardiogram pending (3) Polysubstance dependence including opioid type drug with complication, episodic abuse: Code(s): F19.20 - Other psychoactive substance dependence, uncomplicated Status: Acute Assessment and Plan: Patient admits to be use of ecstasy methamphetamine marijuana cocaine and fentanyl Patient was counseled and encouraged to quit drug use (4) Toxic encephalopathy: Code(s): G92.9 - Unspecified toxic encephalopathy Status: Acute Assessment and Plan: Patient presented with altered mental status secondary to drug abuse and overdose Patient received 3 doses of Narcan in the ER Affect appears to have worn off as patient is now alert oriented x3 Monitor (5) Elevated liver enzymes: Code(s): R74.8 - Abnormal levels of other serum enzymes Status: Acute Assessment and Plan: Likely secondary to alcohol abuse Check right upper quadrant ultrasound and hepatitis panel Plan DVT prophylaxis -SCDs Lovenox Nutrition -heart healthy diet Code Status - Full Code Transfer out of ICU today DS: Summary Hospital Course Reason for hospitalization: Overdose Narrative: 32-year-old male with a past medical history of obesity and chronic polysubstance abuse who presented to the ER after an unintentional overdose of fentanyl.? The patient arrived by private car when his sister found him unresponsive after snorting a big line of fentanyl.? She managed to load the patient in the car bring him to the ER.? When he arrived to the ER sister told staff that the patient's cousin and brother had from opiate overdoses recently.? The patient reports that he was just trying to get high when he snorted of a gland of fentanyl and went unresponsive.? He received 3 doses of Narcan in the ER 2 mg x 2 and 0.4 mg x 1.? He has required Narcan hourly since he arrived to the ER.? Despite receiving Narcan in being alert and awake and oriented patient had persistent hypoxia requiring 6 L nasal cannula.? When oxygen was decreased down to 4 L patient was desatting into the low to mid 80s.? Chest x-ray was performed which demonstrated diffuse bilateral pulmonary edema, infection or inhalation injury not excluded.? The patient does admit that he has smoked crack cocaine recreationally since he was a teenager.? He also smokes tobacco and marijuana.? His urine drug screen was positive for amphetamines, cocaine and cannabinoids.? The patient reports that he does not use fentanyl on a routine basis.? He denies any recent cough or cold symptoms.? He denies having any fevers or chills.? He does state that he is fatigued often and it is not uncommon for him to fall asleep while he is driving home even when he has not use substances.? He has never been tested for sleep apnea.? He reports that he has a good appetite and has requested food multiple times during the course of my evaluation.? The patient did fall asleep a couple of times during my evaluation but was relatively easy to arouse with verbal stimuli. Hospital Course: Patient presented with polysubstance abuse,? upon arrival patient h
== END 2022-12-11 13:40 | disposition home or self-care (01) | DRG 812 ==
LOC: ANHED 22:28 → ANHICU 12-09 02:29 → ANH3MEDSUR 12-10 14:52
PROVIDERS: Internal Medicine; Admitting Provider Internal Medicine; Emergency Provider Emergency Medicine; Visit Provider Family Medicine
DX: T40.411A Poisoning by fentanyl or fentanyl analogs, accidental (unintentional), initial encounter (principal); J96.01 Acute respiratory failure with hypoxia; J69.0 Pneumonitis due to inhalation of food and vomit; G92.8 Other toxic encephalopathy; I95.2 Hypotension due to drugs; R77.8 Other specified abnormalities of plasma proteins; F10.10 Alcohol abuse, uncomplicated; F15.10 Other stimulant abuse, uncomplicated; F11.10 Opioid abuse, uncomplicated; F14.10 Cocaine abuse, uncomplicated; F19.10 Other psychoactive substance abuse, uncomplicated; G47.30 Sleep apnea, unspecified; R74.8 Abnormal levels of other serum enzymes; F17.210 Nicotine dependence, cigarettes, uncomplicated; E66.9 Obesity, unspecified; Z68.35 Body mass index [BMI] 35.0-35.9, adult
CPT/HCPCS: 36415; 36600; 71045; 71046; 76705; 80048; 80053; 80074; 80307; 81001; 82805; 83605; 83735; 83880; 84145; 84484; 85025; 85027; 85610; 85730; 87040; 87086; 87636; 93005; 94002; 96365; 96366; 96372; 96374; 96375; 99285; A9270; C8929; G0378; J0295; J1650; J2310; J2405; J7030; Q9957